=== PATIENT | female | born 1975 | race Caucasian/White ===

== ENCOUNTER 2016-11-05 21:58 | Emergency (ER) | payer BC ==
[2016-11-05] MEDS ORDERED: KETOROLAC 60 MG/2 ML VIAL IM STA (22:25)
[2016-11-05] MEDS ORDERED: predniSONE 20 MG TAB PO STA (22:25)
[2016-11-05] MEDS ORDERED: ORPHENADRINE 30 MG/ML 2 ML VIAL IM STA (22:25)
--- NOTE | 2016-11-05 23:09 | CT ---
EXAM: CT Cervical Spine Without Intravenous Contrast. CLINICAL HISTORY: Pain. TECHNIQUE: Axial computed tomography images of the cervical spine without intravenous contrast. Coronal and sagittal reformations provided. DOSE INFORMATION: CTDI is 16.50 mGy and DLP is 378.40 mGy-cm. This CT exam was performed using one or more of the following dose reduction techniques: automated exposure control, adjustment of the mA and/or kV according to patient size, and/or use of iterative reconstruction technique. COMPARISON: No relevant prior studies available. FINDINGS: Vertebrae: No acute fracture of the cervical spine. There is reversal of cervical lordosis. Facet joints are normally aligned. Discs/spinal canal/neural foramina: Mild disc space narrowing and eccentric disc-osteophyte complex is present at C5-6 with associated narrowing of the spinal canal and left lateral recess as well as the left neural foramen at this level. Soft tissues: Prevertebral soft tissues are normal in thickness. No evidence of significant soft tissue abnormality. Lung apices: No acute abnormality in the visualized lung apices. IMPRESSION: 1. No acute fracture or traumatic subluxation of the cervical spine. 2. Reversal of cervical lordosis, possibly related to positioning, degenerative change and/or muscle spasm. 3. Mild disc space narrowing and eccentric disc-osteophyte complex at C5- 6 resulting in narrowing of the spinal canal and left lateral recess as well as the left neural foramen at this level.
[2016-11-05 23:33] VITALS: BP 148/97; PULSE 75; RESP 18; TEMP 98.2
--- NOTE | 2016-11-05 23:42 | ED ---
Upper Extremity HPI - General Chief Complaint: Extremity Injury, Upper Stated Complaint: numbness/pain-shoulder & arm Time Seen by Provider: 11/05/16 22:12 Source: patient, family Mode of arrival: ambulatory Limitations: no limitations - History of Present Illness Initial Comments: This patient is a 41-year-old woman who presents to be evaluated for right upper extremity pain that is been going on for about 4 months. She indicates pain to the right forearm including into the right hand mainly the first and second digits. The pain she feels comes down from the neck through the upper arm into the forearm. Patient denies any acute trauma. She states that she has been seen by her physician and had completed to courses of steroids, without much change in the pain. Over the past few days she has had worsening. Patient denies weakness. The pain is constant, aching and burning. She does not identify any worsening or relieving factors. She has been trying gabapentin for the past couple weeks without much change as well. MD Complaint: Injury to:: right, arm Onset/Timin -: month(s) Other Injuries: none Handedness: right Improves With: none Worsens With: none Associated Symptoms: denies other symptoms - Related Data Home Medications Medication Instructions Recorded Confirmed Ergocalciferol [Vitamin D2] 50,000 unit PO WE 11/05/16 11/05/16 Gabapentin [Neurontin] 300 mg PO DIRECTED 11/05/16 11/05/16 traMADol HCL [Ultram] 50 - 100 mg PO Q8H PRN 11/05/16 11/05/16 Previous Rx's Medication Instructions Recorded Hydrocodone/Acetaminophen [[place] 1 each PO Q6HR PRN #20 tab 11/05/16 5-325] predniSONE 60 mg PO DAILY #30 tab 11/05/16 Allergies Allergy/AdvReac Type Severity Reaction Status Date / Time No Known Allergies Allergy Verified 11/05/16 22:35 Review of Systems ROS Statement: Those systems with pertinent positive or pertinent negative responses have been documented in the HPI. ROS Other: All systems not noted in ROS Statement are negative. Constitutional: Denies: fever, chills, weakness Respiratory: Denies: cough, dyspnea Cardiovascular: Denies: chest pain Gastrointestinal: Denies: abdominal pain Musculoskeletal: Reports: as per HPI. Denies: back pain Skin: Denies: rash Neurological: Reports: paresthesias. Denies: headache, weakness, numbness Past Medical History Additional Past Medical History / Comment(s): right arm numbness and pain x 4months History of Any Multi-Drug Resistant Organisms: None Reported Past Surgical History: No Surgical Hx Reported Past Psychological History: No Psychological Hx Reported Smoking Status: Former smoker Past Alcohol Use History: None Reported Past Drug Use History: None Reported General Exam Limitations: no limitations General appearance: alert, in no apparent distress Head exam: Present: atraumatic, normocephalic, normal inspection Eye exam: Present: normal appearance. Absent: scleral icterus, conjunctival injection Neck exam: Present: normal inspection, full ROM Respiratory exam: Present: normal lung sounds bilaterally. Absent: respiratory distress, wheezes, rales, rhonchi, stridor Cardiovascular Exam: Present: regular rate, normal rhythm, normal heart sounds Extremities exam: Present: normal inspection, full ROM, normal capillary refill. Absent: tenderness Back exam: Present: normal inspection. Absent: CVA tenderness (R), CVA tenderness (L), vertebral tenderness Neurological exam: Present: alert. Absent: motor sensory deficit Skin exam: Present: warm, dry, intact, normal color. Absent: rash Course Vital Signs 11/05/16 11/05/16 22:05 23:29 Temperature 98.7 F 98.2 F Pulse Rate 105 H 75 Respiratory 20 18 Rate Blood Pressure 134/89 148/97 O2 Sat by Pulse 98 98 Oximetry Disposition Clinical Impression: Right arm pain Disposition: HOME SELF-CARE Condition: Good Instructions: Cervical Radiculopathy (ED) Prescriptions: Hydrocodone/Acetaminophen [[place] 5-325] 1 each PO Q6HR PRN #20 tab PRN Reason: Pain predniSONE 60 mg PO DAILY #30 tab Referrals: Renuka Harris DO [Primary Care Provider] - 1-2 days
== END 2016-11-06 00:19 | disposition home or self-care (01) ==
LOC: EC 21:58
DX: M79.621 Pain in right upper arm (principal); M79.631 Pain in right forearm; M79.641 Pain in right hand; M79.644 Pain in right finger(s); M54.2 Cervicalgia; Z87.891 Personal history of nicotine dependence; Z79.899 Other long term (current) drug therapy; X58.XXXA Exposure to other specified factors, initial encounter
CPT/HCPCS: 72125; 99283; 96372 ×2; J2360; J1885; J7512

== ENCOUNTER → 2017-05-06 | Outpatient (CLI) | payer BC ==
--- NOTE | 2017-05-06 17:52 | XR ---
EXAMINATION TYPE: XR cervical spine w flex/ext DATE OF EXAM: 05/06/2017 COMPARISON: NONE HISTORY: Pain TECHNIQUE: 7 views FINDINGS: Cervical vertebra have normal alignment. There is slight narrowing at C5-6 disc space with anterior mild spurring. Flexion-extension views show no sign of instability. Posterior elements are i ntact. Atlantoaxial facet joint is normal. IMPRESSION: No sign of instability. Mild spondylosis at C5-6.
== END | disposition home or self-care (01) ==
LOC: RADXRMAIN 17:21
PROVIDERS: ATTEND Neurological Surgery
DX: M47.812 Spondylosis without myelopathy or radiculopathy, cervical region (principal)
CPT/HCPCS: 72052

== ENCOUNTER → 2017-05-09 | Outpatient (CLI) | payer BC ==
--- NOTE | 2017-05-09 07:56 | MR ---
EXAMINATION TYPE: MR cervical spine wo con DATE OF EXAM ORDERED: 05/09/2017 7:39 AM HISTORY: M50.022,M50.023 Cervical disc disorder with myelopathy. TECHNOLOGIST HISTORY AT TIME OF EXAM: Cervical disc disorder with myelopathy, left arm and shoulder p ain COMPARISON: None. TECHNIQUE: Multiplanar, multiecho imaging of the cervical spine was obtained without contrast on a 1 .5 juvencio magnet. FINDINGS: Prevertebral soft tissues are normal. There is mild reversal of the normal cervical lordosis. Vertebral body alignment is maintained. Atlan toaxial relationships are normal. There is a normal craniocervical junction. Cord signal is normal. At C2-C3, no definite abnormality is seen. At C3-C4, there is mild, bilateral intervertebral foraminal narrowing. There is no significant compre ssive discopathy. Facet and uncovertebral joints are unremarkable. At C4-C5, there is mild, bilateral intervertebral foraminal narrowing. There is a diffuse disc displa cement. The facet and uncovertebral joints are unremarkable. At C5-C6, there is disc space loss. There is a left paracentral disc protrusion deforming the thecal sac with cord contact and displacement. This is also causing left-sided intervertebral foraminal narr owing. The facet and uncovertebral joints are unremarkable. At C6-C7, there is disc space loss. There is a large central and right paracentral disc protrusion. T his is deforming the thecal sac with cord contact and compression. The intervertebral foramina are re asonably well-maintained. Facet and uncovertebral joints are unremarkable. At C7-T1, no definite abnormality is seen. IMPRESSION: 1. LEFT PARACENTRAL DISC PROTRUSION, C5-6. 2. RIGHT PARACENTRAL DISC PROTRUSION, C6-7. 3. MULTILEVEL INTERVERTEBRAL FORAMINAL NARROWING.
== END | disposition home or self-care (01) ==
LOC: RADMRIMAIN 07:03
PROVIDERS: ATTEND Neurological Surgery
DX: M99.71 Connective tissue and disc stenosis of intervertebral foramina of cervical region (principal); M50.122 Cervical disc disorder at C5-C6 level with radiculopathy
CPT/HCPCS: 72141

== ENCOUNTER → 2018-07-29 | Outpatient (CLI) | payer BC ==
--- NOTE | 2018-07-29 15:49 | XR ---
EXAMINATION TYPE: XR cervical spine w flex/ext DATE OF EXAM: 07/29/2018 TECHNIQUE: Frontal, lateral, oblique, swimmers, and open mouth view of the cervical spine are obtaine d. Flexion and tension views are obtained. HISTORY: M48.02 Spinal stenosis M50.123 Cervical disc disor COMPARISON: 05/06/2017 FINDINGS: Interval postoperative changes of anterior cervical discectomy and fusion. Intervertebral b adonay stabilizer is noted at the C5-6 and C6-7 levels. Spinal alignment is stable at neutral, flexion a nd extension. The main levels are within normal limits. IMPRESSION: Appropriate postoperative alignment.
== END | disposition home or self-care (01) ==
LOC: RADXRMAIN 15:08
PROVIDERS: ATTEND Neurological Surgery
DX: M48.02 Spinal stenosis, cervical region (principal); M50.123 Cervical disc disorder at C6-C7 level with radiculopathy; M50.022 Cervical disc disorder at C5-C6 level with myelopathy
CPT/HCPCS: 72052

== ENCOUNTER → 2018-08-05 | Outpatient (CLI) | payer BC ==
--- NOTE | 2018-08-07 12:52 | MM ---
Reason for exam: screening (asymptomatic). Baseline mammogram. History: Family history of breast cancer in mother at age 67. Bilateral breast lifts in 2014. Physical Findings: Nurse did not find any significant physical abnormalities on exam. MG 3D Screening Mammo W/Cad Bilateral CC and MLO view(s) were taken. No prior studies available for comparison. There are scattered fibroglandular densities. There is a 13 mm oval circumscribed density in the right upper outer middle breast. There is benign-appearing round bilateral breast calcifications. ASSESSMENT: Incomplete: need additional imaging evaluation, BI-RAD 0 RECOMMENDATION: Ultrasound of the right breast.
--- NOTE | 2018-08-07 12:58 | USB ---
History: Family history of breast cancer in mother at age 67. US Breast Workup Limited RT Right limited breast ultrasound including focal area of concern, retroareolar and axilla demonstrates a 0.9 x 0.5 x 0.9 cm oval well circumscribed hypoechoic lesion at the 10 o'clock position. These results were verbally communicated with the patient and result sheet given to the patient on 08/05/18. ASSESSMENT: Suspicious, BI-RAD 4 RECOMMENDATION: Ultrasound core biopsy of the right breast. Called Dr. Harris with mammographic findings and has scheduled an appointment for the patient for 09/01/[address] Foster. The right breast ultrasound core biopsy is schedualed for 08/02/18 at 2pm. PRELIMINARY REPORT CALLED AND FAXED TO DR. FOSTER ON 08/05/18
== END | disposition home or self-care (01) ==
LOC: RADMAMWWP 14:27
PROVIDERS: ATTEND Family Medicine
DX: Z12.31 Encounter for screening mammogram for malignant neoplasm of breast (principal); Z80.3 Family history of malignant neoplasm of breast
CPT/HCPCS: 77063; 77067

== ENCOUNTER → 2018-08-13 | Day surgery (SDC) | payer BC ==
[2018-08-13 07:17] VITALS: RESP 16; BMI 37.3
[2018-08-13 08:58] VITALS: BP 142/75; PULSE 71; TEMP 97.9
--- NOTE | 2018-08-13 16:29 | USB ---
EXAMINATION TYPE: US biopsy breast VAD RT DATE OF EXAM: 08/13/2018 CLINICAL HISTORY: R92.8 Abnormal Mammogram. TECHNIQUE: Ultrasound guided core biopsy of right breast. COMPARISON: 08/05/2018 FINDINGS: The procedure of ultrasound guided core biopsy was explained to the patient. Benefits, alt ernatives, and risks were discussed. An informed consent was then obtained. A timeout was performed. The patient was placed in supine positioning for imaging and for the procedure. The overlying skin w as cleansed with Betadine, prepped and draped in usual sterile fashion. Lidocaine buffered with bica rbonate was used as anesthetic into the skin and subcutaneous tissue up to area of concern in the rig ht breast. A small skin jade was made with surgical scalpel. Under ultrasound guidance, a 12-gauge vacuum assisted biopsy gun device was used to obtain 7 core brendan ples. Following this, a biopsy clip was left in lesion. Postprocedure mammogram ordered by the physician is performed. Coil clip Core marker is within the ri ght breast. The patient tolerated the procedure well without any immediate complication. The patient was kept in the radiology department for short stay after the procedure and then discharged home in stable condi tion. Patient will follow-up with her physician for the results. IMPRESSION: 1. Successful ultrasound-guided vacuum-assisted core biopsy right breast. Recommendations: 1. Recommendations are pending pathology results.
== END | disposition home or self-care (01) ==
LOC: RADUSWWP 06:56
PROVIDERS: ATTEND Surgery
DX: D24.1 Benign neoplasm of right breast (principal)
CPT/HCPCS: 88305; 77065; 19083; A4648; J2001

== ENCOUNTER → 2019-02-15 | Outpatient (CLI) | payer BC ==
--- NOTE | 2019-02-15 11:31 | USB ---
Reason for exam: follow-up at short interval from prior study. History: Family history of breast cancer in mother at age 67. Benign US biopsy breast VAD RT of the right breast, August 13, 2018. Breast lifts of both breasts, 2007. Physical Findings: Nurse did not find any significant physical abnormalities on exam. US Breast RT Right complete breast ultrasound includes all four quadrants, the retroareolar region and axilla. Finding demonstrates a 1.2 x 0.8 x 0.4cm elongated, hypoechoic lesion at 10 o'clock, biopsy proven fibroadenoma. No other solid or cystic lesions. These results were verbally communicated with the patient and result sheet given to the patient on 02/15/19. ASSESSMENT: Benign, BI-RAD 2 RECOMMENDATION: Return to routine screening mammogram schedule for both breasts. (or after delivery)
== END | disposition home or self-care (01) ==
LOC: RADUSWWP 09:30
PROVIDERS: ATTEND Surgery
DX: R92.8 Other abnormal and inconclusive findings on diagnostic imaging of breast (principal)

== ENCOUNTER → 2020-06-14 | Outpatient (CLI) | payer BC ==
--- NOTE | 2020-06-15 09:49 | MM ---
Reason for exam: screening (asymptomatic). Last mammogram was performed 1 year and 10 months ago. History: Family history of breast cancer in mother at age 67. Benign US biopsy breast VAD RT of the right breast, August 13, 2018. Breast lifts of both breasts, 2007. Physical Findings: A clinical breast exam by your physician is recommended on an annual basis and results should be correlated with mammographic findings. MG 3D Screening Mammo W/Cad Bilateral CC and MLO view(s) were taken. Prior study comparison: August 13, 2018, right breast MG diagnostic mammo RT wo CAD. August 05, 2018, bilateral MG 3d screening mammo w/cad. There are scattered fibroglandular densities. Previous mammotome biopsy in the right breast. No significant changes when compared with prior studies. ASSESSMENT: Benign, BI-RAD 2 RECOMMENDATION: Routine screening mammogram of both breasts in 1 year.
== END | disposition home or self-care (01) ==
LOC: RADMAMWWP 14:38
PROVIDERS: ATTEND Family Medicine
DX: Z12.31 Encounter for screening mammogram for malignant neoplasm of breast (principal)
CPT/HCPCS: 77063; 77067

== ENCOUNTER 2021-04-02 18:52 | Emergency (ER) | payer BC ==
[2021-04-02 19:13] VITALS: RESP 18; TEMP 98.4
[2021-04-02] MEDS ORDERED: HYDROmorphone 1 MG/ML 1 ML SYRINGE IM STA (19:34)
--- NOTE | 2021-04-02 19:37 | ED ---
Back Pain HPI - General Chief Complaint: Back Pain/Injury Stated Complaint: low back pain Time Seen by Provider: 04/02/21 19:25 Source: patient, family, RN notes reviewed Limitations: no limitations - History of Present Illness Initial Comments: This a 45-year-old female presents emergency Department chief complaint of low back pain. Patient had increased symptoms of last 2 weeks. Patient states she has primary lumbar pain on the right side with numbness to her first 3 digits on the right and burning sensation to her left eye. She denies any bowel, bladder incontinence or retention of saddle anesthesias. Patient has no current abdominal pain. Patient saw PCP today sent emergency from for x-rays. Patient states she's had cervical spine surgery secondary to disc issues. - Related Data Home Medications Medication Instructions Recorded Confirmed Ergocalciferol [Vitamin D2] 50,000 unit PO WE 11/05/16 08/13/18 Previous Rx's Medication Instructions Recorded Ibuprofen [Motrin] 600 mg PO Q8HR PRN #20 tab 04/02/21 Allergies Allergy/AdvReac Type Severity Reaction Status Date / Time No Known Allergies Allergy Verified 08/13/18 07:09 Review of Systems ROS Statement: Those systems with pertinent positive or pertinent negative responses have been documented in the HPI. ROS Other: All systems not noted in ROS Statement are negative. Past Medical History Past Medical History: No Reported History Additional Past Medical History / Comment(s): right arm numbness and pain x 4months History of Any Multi-Drug Resistant Organisms: None Reported Past Surgical History: No Surgical Hx Reported Additional Past Surgical History / Comment(s): herniated disc 2017, neck surgery Past Anesthesia/Blood Transfusion Reactions: No Reported Reaction Past Psychological History: No Psychological Hx Reported Past Alcohol Use History: None Reported Past Drug Use History: None Reported General Exam Limitations: no limitations General appearance: alert, in no apparent distress Head exam: Present: atraumatic, normocephalic, normal inspection Neck exam: Present: normal inspection, full ROM. Absent: tenderness, meningismus, lymphadenopathy Respiratory exam: Present: normal lung sounds bilaterally. Absent: respiratory distress, wheezes, rales, rhonchi, stridor Cardiovascular Exam: Present: regular rate, normal rhythm, normal heart sounds. Absent: systolic murmur, diastolic murmur, rubs, gallop, clicks GI/Abdominal exam: Present: soft, normal bowel sounds. Absent: distended, tenderness, guarding, rebound, rigid Extremities exam: Present: other (Lower extremity strength equal bilaterally neurovascular intact pain with range of motion lower extremities equal color equal warmth) Back exam: Present: normal inspection, tenderness, paraspinal tenderness. Absent: full ROM (Pain with range of motion), vertebral tenderness Neurological exam: Present: alert, oriented X3, reflexes normal. Absent: motor sensory deficit Course Vital Signs 04/02/21 19:08 Temperature 98.4 F Pulse Rate 75 Respiratory 18 Rate Blood Pressure 145/84 O2 Sat by Pulse 99 Oximetry Medical Decision Making - Medical Decision Making 45-year-old presented for low back pain. Patient has disc bulging, degenerative disc changes. Patient has no red flag symptoms will be discharged in stable condition she does have a surgeon to follow-up with an her PCP. Disposition Clinical Impression: Bulging lumbar disc, Lumbar radiculopathy Disposition: HOME SELF-CARE Condition: Stable Instructions (If sedation given, give patient instructions): Acute Low Back Pain (ED) Additional Instructions: Please return to the Emergency Department if symptoms worsen or any other concerns. Prescriptions: Ibuprofen [Motrin] 600 mg PO Q8HR PRN #20 tab PRN Reason: Pain Is patient prescribed a controlled substance at d/c from ED?: No Referrals: Renuka Harris DO [Primary Care Provider] - 1-2 days Time of Disposition: 20:56
--- NOTE | 2021-04-02 20:47 | CT ---
EXAMINATION TYPE: CT lumbar spine wo con DATE OF EXAM: 04/02/2021 7:56 PM COMPARISON: None available. HISTORY: low back pain, no injury TECHNIQUE: Axial CT images of the lumbar spine was obtained without contrast. CT DLP: 1843.6 mGycm Automated exposure control for dose reduction was used. FINDINGS: There is no acute fracture or subluxation. The vertebral body heights are maintained. There is mild t o moderate disc narrowing at L5-S1. There is disc bulge at L4-L5. Suboptimal evaluation of central ca nal stenosis. There is suggestion of mild foramina stenosis in the lower lumbar spine.. IMPRESSION: L4-L5 disc bulge. Otherwise mild spondylosis without acute osseous abnormality.
[2021-04-02] MEDS ORDERED: ACET/COD 300 MG/30 MG STARTER PACK 6 TAB BTL PO STA (20:55)
[2021-04-02 21:07] VITALS: BP 130/85; PULSE 72
== END 2021-04-02 21:12 | disposition home or self-care (01) ==
LOC: EC 18:52
DX: M51.16 Intervertebral disc disorders with radiculopathy, lumbar region (principal)
CPT/HCPCS: 72131; 99284; 96372; J1170

== ENCOUNTER → 2021-06-24 | Outpatient (CLI) | payer BC ==
--- NOTE | 2021-06-27 11:33 | MM ---
Reason for exam: screening (asymptomatic). Last mammogram was performed 1 year ago. History: Family history of breast cancer in mother at age 67. Benign US biopsy breast VAD RT of the right breast, August 13, 2018. Breast lifts of both breasts, 2008. Took other hormone for 3 months. Physical Findings: A clinical breast exam by your physician is recommended on an annual basis and results should be correlated with mammographic findings. MG 3D Screening Mammo W/Cad Bilateral CC and MLO view(s) were taken. Prior study comparison: June 14, 2020, bilateral MG 3d screening mammo w/cad. August 13, 2018, right breast MG diagnostic mammo RT wo CAD. There are scattered fibroglandular densities. Previous mammotome biopsy in the right breast. Focal asymmetry in the right breast. No significant changes when compared with prior studies. ASSESSMENT: Benign, BI-RAD 2 RECOMMENDATION: Routine screening mammogram of both breasts in 1 year.
== END | disposition home or self-care (01) ==
LOC: RADMAMWWP 12:48
PROVIDERS: ATTEND Family Medicine
DX: Z12.31 Encounter for screening mammogram for malignant neoplasm of breast (principal); Z80.3 Family history of malignant neoplasm of breast
CPT/HCPCS: 77063; 77067

== ENCOUNTER → 2022-08-06 | Outpatient (CLI) | payer BC ==
--- NOTE | 2022-08-07 19:42 | MM ---
Reason for Exam: Screening (asymptomatic). Last mammogram was performed 1 year(s) and 2 month(s) ago. Patient History: Menarche at age 15. Patient has no children. 08/13/2018, Benign Core Biopsy on the right side. Mother had breast cancer, age 65. Last menstrual period: 08/03/2022 Prior Study Comparison: 08/13/2018 Right Diagnostic Mammogram, [facility]. 06/14/2020 Bilateral Screening Mammogram, [facility]. 06/24/2021 Bilateral Screening Mammogram, [facility]. Tissue Density: There are scattered fibroglandular densities. Findings: Analyzed By CAD. Microclip right breast from prior biopsy. Associated oval focal asymmetry remains unchanged. Additional stable 12:00 focal asymmetry left breast. No significant change from prior exams. Overall Assessment: Benign, BI-RAD 2 Management: Screening Mammogram of both breasts in 1 year. 1. Per NCCN guidelines, a 5 year risk greater than 1.67% is used to assess eligibility for risk reduction therapy. Consider specialist referral for further assessment. 2. In addition, note the patient's increased (20%) lifetime risk for the development of breast cancer. The patient may qualify for alternating screening with mammogram and breast MRI. 3. Patient should continue monthly self breast exams. Negative results should not preclude additional follow-up of suspicious palpable abnormalities. Electronically signed and approved by: Marcela Mahan M.D. Radiologist
== END | disposition home or self-care (01) ==
LOC: RADMAMWWP 13:03
PROVIDERS: ATTEND Family Medicine
DX: Z12.31 Encounter for screening mammogram for malignant neoplasm of breast (principal); Z80.3 Family history of malignant neoplasm of breast; Z98.890 Other specified postprocedural states
CPT/HCPCS: 77063; 77067

== ENCOUNTER 2023-06-08 17:24 | Emergency (ER) | payer BC ==
[2023-06-08 18:00] VITALS: TEMP 98
[2023-06-08] MEDS ORDERED: LIDOCAINE 5% PATCH TOPICAL STA (18:30)
[2023-06-08] MEDS ORDERED: ACETAMINOPHEN TAB 500 MG TAB PO STA (18:30)
[2023-06-08] MEDS ORDERED: KETOROLAC 15 MG/ML 1 ML VIAL IM STA (18:30)
--- NOTE | 2023-06-08 19:01 | XR ---
EXAMINATION TYPE: XR knee complete LT DATE OF EXAM: 06/08/2023 6:42 PM CLINICAL INDICATION:Female, 47 years old with history of pain; COMPARISON: None. TECHNIQUE: XR knee complete LT; examined in Frontal, lateral and oblique projections. FINDINGS: No evidence of any acute osseous pathology, soft tissue swelling, or joint effusion is no mandi. Tricompartmental osteophyte formation involving the femoral condyles, tibial plateau and patella. Mi ld joint space narrowing. A fabella is present. IMPRESSION: 1. No acute osseous pathology. 2. Mild tricompartmental osteoarthritic changes.
--- NOTE | 2023-06-08 19:37 | US ---
EXAMINATION TYPE: US venous doppler duplex LE LT DATE OF EXAM: 06/08/2023 7:11 PM COMPARISON: NONE CLINICAL INDICATION: Female, 47 years old with history of pain; pain in left leg x a couple weeks. Pt states pain got worse 3 days ago. No hx of DVT. Not on blood thinners SIDE PERFORMED: Left TECHNIQUE: The lower extremity deep venous system is examined utilizing real time linear array sonog gurmeet with graded compression, doppler sonography and color-flow sonography. VESSELS IMAGED: Common Femoral Vein Deep Femoral Vein Greater Saphenous Vein * Femoral Vein Popliteal Vein Small Saphenous Vein * Proximal Calf Veins (* superficial vessels) Left Leg: No evidence for DVT IMPRESSION: Grayscale, color doppler, spectral doppler imaging performed of the deep veins of the lo wer extremities. There is normal flow, compressibility, vascular waveforms.
[2023-06-08] MEDS ORDERED: IBUPROFEN 600 MG STARTER PACK 4 TAB BTL PO STA (20:13)
[2023-06-08] MEDS ORDERED: ACET/COD 300 MG/30 MG STARTER PACK 6 TAB BTL PO STA (20:13)
[2023-06-08] MEDS ORDERED: HYDROcodone/APAP 5-325MG 1 EACH TAB PO STA (20:13)
--- NOTE | 2023-06-08 20:18 | ED ---
General Adult HPI - General Chief complaint: Extremity Injury, Lower Stated complaint: left knee pain Time Seen by Provider: 06/08/23 17:51 Source: patient, RN notes reviewed Mode of arrival: wheelchair Limitations: no limitations - History of Present Illness Initial comments: 47 with a presents to the emergency department chief complaint of left knee p ain. She states that this going on for around 2 weeks but has been worse for the past 3 days. She denies any injury. She denies any swelling to the lower leg. Denies calf pain, chest pain, shortness of breath. She states that the pain is worse with certain movements. She states that today she was walking up the stairs when she felt a worsening pain. She denies any numbness, tingling. She reports that she has been icing the knee which has not been helping - Related Data Home Medications Medication Instructions Recorded Confirmed Ergocalciferol [Vitamin D2] 50,000 unit PO WE 11/05/16 08/13/18 Previous Rx's Medication Instructions Recorded Ibuprofen [Motrin] 600 mg PO Q8HR PRN #20 tab 04/02/21 Allergies Allergy/AdvReac Type Severity Reaction Status Date / Time No Known Allergies Allergy Verified 06/08/23 17:45 Review of Systems ROS Statement: Those systems with pertinent positive or pertinent negative responses have been documented in the HPI. ROS Other: All systems not noted in ROS Statement are negative. Past Medical History Past Medical History: No Reported History Additional Past Medical History / Comment(s): right arm numbness and pain x 4months History of Any Multi-Drug Resistant Organisms: None Reported Past Surgical History: No Surgical Hx Reported Additional Past Surgical History / Comment(s): herniated disc 2017, neck surgery Past Anesthesia/Blood Transfusion Reactions: No Reported Reaction Past Psychological History: No Psychological Hx Reported Smoking Status: Never smoker Past Alcohol Use History: None Reported Past Drug Use History: None Reported General Exam Limitations: no limitations General appearance: alert, in no apparent distress Course Vital Signs 06/08/23 06/08/23 17:43 20:45 Temperature 98 F Pulse Rate 79 76 Respiratory 16 20 Rate Blood Pressure 130/92 128/90 O2 Sat by Pulse 97 100 Oximetry Medical Decision Making - Medical Decision Making Was pt. sent in by a medical professional or institution (, PA, ARCHITECTURAL TECHNOLOGIST, urgent care, hospital, or [facility]...) When possible be specific @ -No Did you speak to anyone other than the patient for history (EMS, parent, family, police, friend...)? What history was obtained from this source @ -No Did you review nursing and triage notes (agree or disagree)? Why? @ -I reviewed and agree with nursing and triage notes Were old charts reviewed (outside hosp., previous admission, EMS record, old EKG, old radiological studies, urgent care reports/EKG's, [facility] records)? Report findings @ -No old charts were reviewed Differential Diagnosis (chest pain, altered mental status, abdominal pain women, abdominal pain men, vaginal bleeding, weakness, fever, dyspnea, syncope, headache, dizziness, GI bleed, back pain, seizure, CVA, palpatations, mental health, musculoskeletal)? @ -Differential Musculoskeletal Muscular strain, contusion, ligament sprain, fracture, arthritis, septic arthritis, bursitis, cellulitis, muscle spasm, nerve compression, DVT, arterial occlusion, herpes zoster, electrolyte abnormality, tumor.... This is not meant to be in all inclusive list EKG interpreted by me (3pts min.). @ -None X-rays interpreted by me (1pt min.). @ -X-ray left knee shows no evidence of acute fracture, mild osteoarthritic changes CT interpreted by me (1pt min.). @ -None done U/S interpreted by me (1pt. min.). @ -Ultrasound Left Leg Shows No Evidence of DVT What testing was considered but not performed or refused? (CT, X-rays, U/S, labs)? Why? @ -None What meds were considered but not given or refused? Why? @ -None Did you discuss the management of the patient with other professionals (professionals i.e. , PA, ARCHITECTURAL TECHNOLOGIST, lab, RT, psych nurse, social security specialist, orthopaedic physician assistant, teacher, motorcycle police officer, case checker)? Give summary @ -No Was smoking cessation discussed for >3mins.? @ -No Was critical care preformed (if so, how long)? @ -No Were there social determinants of health that impacted care today? How? (Homelessness, low income, unemployed, alcoholism, drug addiction, transportation, low edu. Level, literacy, decrease access to med. care, intermediate, rehab)? @ -No Was there de-escalation of care discussed even if they declined (Discuss DNR or withdrawal of care, Hospice)? DNR status @ -No What co-morbidities impacted this encounter? (DM, HTN, Smoking, COPD, CAD, Cancer, CVA, ARF, Chemo, Hep., AIDS, mental health diagnosis, sleep apnea, morbid obesity)? @ -None Was patient admitted / discharged? Hospital course, mention meds given and route, prescriptions, significant lab abnormalities, going to OR and other pertinent info. @ -Discharged. Patient presented to emergency department chief complaint of left knee pain. She denies any trauma. Ultrasound left leg shows no evidence of DVT, x-rays the left a shows no evidence of acute fracture, mild ostearthritic changes. Patient given Toradol, lidocaine patch for pain control which slightly improved her pain. Patient discharged home with Tylenol 3 starter pack. Patient advised to follow-up with her PCP. Patient stable at time of discharge. Case discussed with Dr. Mata. Undiagnosed new problem with uncertain prognosis? @ -No Drug Therapy requiring intensive monitoring for toxicity (Heparin, Nitro, Insulin, Cardizem)? @ -No Were any procedures done? @ -No Diagnosis/symptom? @ -Left knee pain Acute, or Chronic, or Acute on Chronic? @ -Acute Uncomplicated (without systemic symptoms) or Complicated (systemic symptoms)? @ -Uncomplicated Side effects of treatment? @ -No Exacerbation, Progression, or Severe Exacerbation? @ -No Poses a threat to life or bodily function? How? (Chest pain, [place], [place], pneumonia, PE, COPD, DKA, ARF, appy, cholecystitis, CVA, Diverticulitis, Homicidal, Suicidal, threat to staff... and all critical care pts) @ -No Disposition Clinical Impression: Left knee pain Disposition: HOME SELF-CARE Condition: Stable Instructions (If sedation given, give patient instructions): Knee Pain (ED) Additional Instructions: Please follow up with your primary care provider. Rest, ice, elevated the knee. Return to the emergency department for new or worsening symptoms. Is patient prescribed a controlled substance at d/c from ED?: No Referrals: Renuka Harris DO [Primary Care Provider] - 1-2 days Sunny Fowler MD [Medical Doctor] - 1-2 days
[2023-06-08 21:05] VITALS: BP 128/90; PULSE 76; RESP 20
== END 2023-06-08 20:47 | disposition home or self-care (01) ==
LOC: EC 17:24
DX: M25.562 Pain in left knee (principal)
CPT/HCPCS: 73562; 93971; 99284; 96372; J1885

== ENCOUNTER 2024-10-28 20:04 | Emergency (ER) | payer BC ==
[2024-10-28 20:43] VITALS: BP 142/85; PULSE 78; RESP 18; TEMP 98.5
--- NOTE | 2024-10-28 21:16 | ED ---
ENT HPI - General Chief complaint: ENT Stated complaint: Ear pain Time Seen by Provider: 10/28/24 21:11 Source: patient Mode of arrival: ambulatory Limitations: no limitations - History of Present Illness Initial comments: 49-year-old female presenting chief complaint of right ear pain. Pain has been ongoing since Thursday. Patient reports that she has had several episodes of ear pain ongoing over the last year. This seems to be a recurrent issue for her. States that her hearing is muffled and she feels like something needs to pop inside of her ear. There is no discharge or bleeding. No swelling or pain behind her ear. No fever. She is having some congestion. - Related Data Home Medications Medication Instructions Recorded Confirmed Ergocalciferol [Vitamin D2] 50,000 unit PO WE 11/05/16 08/13/18 Previous Rx's Medication Instructions Recorded Ibuprofen [Motrin] 600 mg PO Q8HR PRN #20 tab 04/02/21 Amoxicillin 875 mg PO Q12HR 7 Days #14 tablet 10/28/24 Allergies Allergy/AdvReac Type Severity Reaction Status Date / Time No Known Allergies Allergy Verified 10/28/24 20:43 Review of Systems ROS Statement: Those systems with pertinent positive or pertinent negative responses have been documented in the HPI. ROS Other: All systems not noted in ROS Statement are negative. Past Medical History Past Medical History: No Reported History Additional Past Medical History / Comment(s): right arm numbness and pain x 4months History of Any Multi-Drug Resistant Organisms: None Reported Past Surgical History: No Surgical Hx Reported Additional Past Surgical History / Comment(s): herniated disc 2017, neck surgery Past Anesthesia/Blood Transfusion Reactions: No Reported Reaction Past Psychological History: No Psychological Hx Reported Smoking Status: Never smoker Past Alcohol Use History: None Reported Past Drug Use History: None Reported General Exam Limitations: no limitations General appearance: alert, in no apparent distress Head exam: Present: atraumatic, normocephalic, normal inspection Eye exam: Present: normal appearance, EOMI Expanded Ear exam: Present: normal external inspection TM/Canal exam: Erythema: Right TM Neck exam: Present: normal inspection. Absent: meningismus Respiratory exam: Absent: respiratory distress Cardiovascular Exam: Present: regular rate Neurological exam: Present: alert, oriented X3 Psychiatric exam: Present: normal affect, normal mood Skin exam: Present: warm, dry, normal color Course Vital Signs 10/28/24 20:42 Temperature 98.5 F Pulse Rate 78 Respiratory 18 Rate Blood Pressure 142/85 O2 Sat by Pulse 98 Oximetry Medical Decision Making - Medical Decision Making Was pt. sent in by a medical professional or institution (CRISSY Sharma, SCREENER OPERATOR, urgent care, hospital, or penitentiary...) When possible be specific @ -No Did you speak to anyone other than the patient for history (EMS, parent, family, police, friend...)? What history was obtained from this source @ -No Did you review nursing and triage notes (agree or disagree)? Why? @ -I reviewed and agree with nursing and triage notes Were old charts reviewed (outside hosp., previous admission, EMS record, old EKG, old radiological studies, urgent care reports/EKG's, penitentiary records)? Report findings @ -No old charts were reviewed Differential Diagnosis (chest pain, altered mental status, abdominal pain women, abdominal pain men, vaginal bleeding, weakness, fever, dyspnea, syncope, headache, dizziness, GI bleed, back pain, seizure, CVA, palpatations, mental health, musculoskeletal)? @ -Differential includes otitis media, otitis externa, mastoiditis, foreign body, not an all-inclusive list EKG interpreted by me (3pts min.). @ -As above X-rays interpreted by me (1pt min.). @ -None done CT interpreted by me (1pt min.). @ -None done U/S interpreted by me (1pt. min.). @ -None done What testing was considered but not performed or refused? (CT, X-rays, U/S, labs)? Why? @ -None What meds were considered but not given or refused? Why? @ -None Did you discuss the management of the patient with other professionals (professionals i.e. CRISSY Sharma, SCREENER OPERATOR, lab, RT, psych nurse, social service coordinator, insurance billing clerk, teacher, amphibious operations officer, showcase trimmer)? Give summary @ -No Was smoking cessation discussed for >3mins.? @ -No Was critical care preformed (if so, how long)? @ -No Were there social determinants of health that impacted care today? How? (Homelessness, low income, unemployed, alcoholism, drug addiction, transportation, low edu. Level, literacy, decrease access to med. care, fdc, rehab)? @ -No Was there de-escalation of care discussed even if they declined (Discuss DNR or withdrawal of care, Hospice)? DNR status @ -No What co-morbidities impacted this encounter? (DM, HTN, Smoking, COPD, CAD, Cancer, CVA, ARF, Chemo, Hep., AIDS, mental health diagnosis, sleep apnea, morbid obesity)? @ -None Was patient admitted / discharged? Hospital course, mention meds given and route, prescriptions, significant lab abnormalities, going to OR and other pertinent info. @ -49-year-old female presenting with chief complaint of right ear pain. Patient states she has had ongoing issues with recurrent right ear pain. On physical exam tympanic membrane is erythematous. No mastoid erythema swelling or tenderness. Patient will be treated for otitis media with amoxicillin. She is educated on today's findings and treatment plan. Provided with an ENT referral for recurrent ear pain. Follow-up with PCP. Report back to ER with any new or worsening symptoms. Discussed return parameters and answered all questions. Patient conveyed verbal understanding and agreed to the plan. I discussed this case in detail with my attending Dr. Harris Undiagnosed new problem with uncertain prognosis? @ -No Drug Therapy requiring intensive monitoring for toxicity (Heparin, Nitro, Insulin, Cardizem)? @ -No Were any procedures done? @ -No Diagnosis/symptom? @ -Otitis media Acute, or Chronic, or Acute on Chronic? @ -Acute Uncomplicated (without systemic symptoms) or Complicated (systemic symptoms)? @ -Uncomplicated Side effects of treatment? @ -No Exacerbation, Progression, or Severe Exacerbation? @ -No Poses a threat to life or bodily function? How? (Chest pain, [place], [place], pneumonia, PE, COPD, DKA, ARF, appy, cholecystitis, CVA, Diverticulitis, Homicidal, Suicidal, threat to staff... and all critical care pts) @ -Low likelihood Disposition Clinical Impression: Otitis media Disposition: HOME SELF-CARE Condition: Good Instructions (If sedation given, give patient instructions): Ear Infection (ED) Additional Instructions: Follow-up with PCP. Report back to ER with any new or worsening symptoms. Take medication as prescribed. Prescriptions: Amoxicillin 875 mg PO Q12HR 7 Days #14 tablet Is patient prescribed a controlled substance at d/c from ED?: No Referrals: Renuka Harris, [Primary Care Provider] - 1-2 days Abel Rae MD [STAFF PHYSICIAN] - 1-2 days Time of Disposition: 21:16
[2024-10-28] MEDS: AMOXICILLIN 875 MG TAB PO STA (21:45)
== END 2024-10-28 21:48 | disposition home or self-care (01) ==
LOC: EC 20:04
DX: H66.91 Otitis media, unspecified, right ear (principal)
CPT/HCPCS: 99282

== ENCOUNTER 2024-11-13 04:38 | Observation (INO) | payer BC ==
--- NOTE | 2024-11-13 05:21 | ED ---
General Adult HPI - General Source: patient, RN notes reviewed Mode of arrival: ambulatory Limitations: no limitations <Viviana Wallace - Last Filed: 11/13/24 07:54> <Ekaterina Gonzales - Last Filed: 11/16/24 10:14> - General Chief complaint: Chest Pain Stated complaint: SOB - History of Present Illness Initial comments: 49-year-old female presenting to the ER with chief complaint of heart palpitations. Patient states she has been feeling weak, dizzy and nauseous. Patient denies chest pain but states it is more like chest discomfort. Endorses some shortness of breath. Took baby aspirin but denies taking any blood thinners. Patient denies any history of thyroid disease. Patient states she drinks 1 cup of coffee per day. Denies any alcohol use. Denies any history of COPD. Denies any illicit drug use. (Viviana Wallace) - Related Data Home Medications Medication Instructions Recorded Confirmed Vitamin D3/Vitamin K2 Drops 1 dose PO DAILY 11/13/24 11/13/24 Allergies Allergy/AdvReac Type Severity Reaction Status Date / Time No Known Allergies Allergy Verified 11/13/24 09:19 Review of Systems ROS Other: All systems not noted in ROS Statement are negative. Constitutional: Denies: fever, chills Respiratory: Reports: dyspnea. Denies: cough Cardiovascular: Reports: palpitations. Denies: chest pain, syncope Genitourinary: Denies: urgency, dysuria Musculoskeletal: Denies: back pain Skin: Denies: rash, lesions Neurological: Reports: weakness. Denies: headache <Viviana Wallace - Last Filed: 11/13/24 07:54> ROS Other: All systems not noted in ROS Statement are negative. <EstebanEkaterina - Last Filed: 11/16/24 10:14> ROS Statement: Those systems with pertinent positive or pertinent negative responses have been documented in the HPI. Past Medical History Past Medical History: No Reported History Additional Past Medical History / Comment(s): right arm numbness and pain x 4months History of Any Multi-Drug Resistant Organisms: None Reported Past Surgical History: No Surgical Hx Reported Additional Past Surgical History / Comment(s): herniated disc 2017, neck surgery Past Anesthesia/Blood Transfusion Reactions: No Reported Reaction Past Psychological History: No Psychological Hx Reported Smoking Status: Never smoker Past Alcohol Use History: None Reported Past Drug Use History: None Reported <Viviana Wallace - Last Filed: 11/13/24 07:54> General Exam Limitations: no limitations General appearance: alert, in no apparent distress Respiratory exam: Present: normal lung sounds bilaterally. Absent: respiratory distress, wheezes, rales Cardiovascular Exam: Present: tachycardia, irregular rhythm GI/Abdominal exam: Present: soft. Absent: distended, tenderness Neurological exam: Present: alert, oriented X3 Psychiatric exam: Present: normal affect, normal mood Skin exam: Present: warm, dry, intact <Viviana Wallace - Last Filed: 11/13/24 07:54> Course Vital Signs 11/13/24 11/13/24 11/13/24 04:48 05:59 06:53 Temperature 98.0 F Pulse Rate 83 107 H 105 H Respiratory 18 17 18 Rate Blood Pressure 141/97 127/105 124/90 O2 Sat by Pulse 99 99 100 Oximetry 11/13/24 11/13/24 07:27 07:57 Temperature 97.8 F 97.9 F Pulse Rate 80 83 Respiratory 18 16 Rate Blood Pressure 151/96 138/99 O2 Sat by Pulse 98 99 Oximetry Medical Decision Making - Lab Data Result diagrams: 11/13/24 05:10 11/13/24 05:10 <Viviana Wallace - Last Filed: 11/13/24 07:54> - Lab Data Result diagrams: 11/13/24 05:10 11/13/24 05:10 <Ekaterina Gonzales - Last Filed: 11/16/24 10:14> - Medical Decision Making Was pt. sent in by a medical professional or institution (, PA, DIGITAL PRODUCTION OPERATOR, urgent care, hospital, or longterm...) When possible be specific @ -No Did you speak to anyone other than the patient for history (EMS, parent, family, police, friend...)? What history was obtained from this source @ -No Did you review nursing and triage notes (agree or disagree)? Why? @ -I reviewed and agree with nursing and triage notes Were old charts reviewed (outside hosp., previous admission, EMS record, old EKG, old radiological studies, urgent care reports/EKG's, longterm records)? Report findings @ -No old charts were reviewed Differential Diagnosis? @ -Differential Palpitations Ventricular arrhythmias, atrial arrhythmias, myocardial infarction, anemia, thyrotoxicosis, electrolyte imbalance, hypokalemia, pulmonary embolism, pulmonary disease, drugs, alcohol, anxiety, stress.... This is not meant to be an all-inclusive list. EKG interpreted by me (3pts min.). @ -A-fib with RVR rate 132 bpm, QTc of 390 ms, normal axis, no ST-T wave changes suggestive of ischemia. X-rays interpreted by me (1pt min.). @ -X-ray was unremarkable. CT interpreted by me (1pt min.). @ -None done U/S interpreted by me (1pt. min.). @ -None done What testing was considered but not performed or refused? (CT, X-rays, U/S, labs)? Why? @ -None What meds were considered but not given or refused? Why? @ -None Did you discuss the management of the patient with other professionals (professionals i.e. DrCandida, PA, DIGITAL PRODUCTION OPERATOR, lab, RT, psych nurse, social service agency director, envelope folding machine operator, t eacher, sergeant of officers, director case management)? Give summary @ -Case was discussed with ED attending physician Dr. Gonzales. Case was discussed with [facility] hospitalist Dr. Wheatley who accepted the admission. Was smoking cessation discussed for >3mins.? @ -No Was critical care preformed (if so, how long)? @ -No Were there social determinants of health that impacted care today? How? (Homelessness, low income, unemployed, alcoholism, drug addiction, transportation, low edu. Level, literacy, decrease access to med. care, half-way, rehab)? @ -No Was there de-escalation of care discussed even if they declined (Discuss DNR or withdrawal of care, Hospice)? DNR status @ -No What co-morbidities impacted this encounter? (DM, HTN, Smoking, COPD, CAD, Cancer, CVA, ARF, Chemo, Hep., AIDS, mental health diagnosis, sleep apnea, morbid obesity)? @ -None Was patient admitted / discharged? Hospital course, mention meds given and route, prescriptions, significant lab abnormalities, going to OR and other pertinent info. @ -Lab work was relatively unremarkable. Chest x-ray was unremarkable. EKG was as listed above. Patient was started on Cardizem drip and bolus. Received 1 dose of oral Cardizem as well. Received fluids bolus. Started on heparin drip. Patient will be admitted to [facility] inpatient service. Undiagnosed new problem with uncertain prognosis? @ -No Drug Therapy requiring intensive monitoring for toxicity (Heparin, Nitro, Insulin, Cardizem)? @ -No Were any procedures done? @ -No Diagnosis/symptom? @ -New onset A-fib Acute, or Chronic, or Acute on Chronic? @ -Acute Uncomplicated (without systemic symptoms) or Complicated (systemic symptoms)? @ -Default Side effects of treatment? @ -No Exacerbation, Progression, or Severe Exacerbation? @ -No Poses a threat to life or bodily function? How? (Chest pain, USA, NH, pneumonia, PE, COPD, DKA, ARF, appy, cholecystitis, CVA, Diverticulitis, Homicidal, Suicidal, threat to staff... and all critical care pts) @ -No (Viviana Wallace) I personally saw the patient and performed the critical portion of the service. I discussed the patient care with the resident physician. I directed management, care planning and final disposition of the patient. This includes, but not limited to, review of all lab work, radiological studies, EKG's, consultations, vital signs, and nursing notes. EKG interpreted by me (3pts min.) A-fib with RVR, rate 132 bpm, QT/QTc 312/390 ms, normal axis, no significant ST elevation or reciprocal depressions X-Rays interpreted by me (1 pt min.) @Personally reviewed CXR, I see no evidence of cardiomegaly, pleural effusions or consolidations CT interpreted by me ( 1pt min.) @ [none] U/S interpreted by me (1 pt min.) @ [none] Critical care time of 35 minutes excluding separately billable procedures was spent in conjunction with critical care activities provided by the Resident and Attending simultaneously. I was present during [no procedures] for all critical portions of the procedure and as immediately available to furnish service during the entire procedure. (Ekaterina Gonzales) - Lab Data Lab Results 11/13/24 11/13/24 11/13/24 Range/Units 05:10 05:10 05:10 WBC 8.48 (4.50-10.00) 10*3/uL RBC 4.97 (4.10-5.20) 10*6/uL Hgb 15.0 (12.0-15.0) g/dL Hct 45.7 (37.2-46.3) % MCV 92.0 (80.0-97.0) fL MCH 30.2 (27.0-32.0) pg MCHC 32.8 (32.0-37.0) g/dL Plt Count 293 (140-440) 10*3/uL MPV 10.5 (9.5-12.2) fL Immature Gran % (Auto) 0.2 % Neutrophils % 46.5 % Lymphocytes % 43.5 % Monocytes % 7.1 % Eosinophils % 1.8 % Basophils % 0.9 % Immature Gran # 0.02 (0.00-0.04) 10*3/uL Neutrophils # 3.94 (1.80-7.70) 10*3/uL Lymphocytes # 3.69 (0.90-5.00) 10*3/uL Monocytes # 0.60 (0.20-1.00) 10*3/uL Eosinophils # 0.15 (0.04-0.35) 10*3/uL Basophils # 0.08 (0.00-0.10) 10*3/uL PT 9.6 L (10.0-12.5) sec INR 0.8 (<1.2) APTT 23.3 (22.0-30.0) sec D-Dimer 0.32 (<0.60) mg/L FEU Sodium 138 (137-145) mmol/L Potassium 4.5 (3.5-5.1) mmol/L Chloride 104 (98-107) mmol/L Carbon Dioxide 26 (22-30) mmol/L Anion Gap 8 mmol/L BUN 13 (7-17) mg/dL Creatinine 0.77 (0.52-1.04) mg/dL Est GFR (CKD-EPI)AfAm >90 (>60 ml/min/1.73 sqM) Est GFR (CKD-EPI)NonAf >90 (>60 ml/min/1.73 sqM) Glucose 132 H (74-99) mg/dL Calcium 9.7 (8.4-10.2) mg/dL Magnesium 2.0 (1.6-2.3) mg/dL Total Bilirubin 1.0 (0.2-1.3) mg/dL AST 34 (14-36) U/L ALT 17 (4-34) U/L Alkaline Phosphatase 59 (38-126) U/L Troponin I (0.000-0.034) ng/mL NT-Pro-B Natriuret Pep 127 pg/mL Total Protein 7.2 (6.3-8.2) g/dL Albumin 4.2 (3.5-5.0) g/dL TSH (0.465-4.680) mIU/L 11/13/24 11/13/24 Range/Units 05:10 05:10 WBC (4.50-10.00) 10*3/uL RBC (4.10-5.20) 10*6/uL Hgb (12.0-15.0) g/dL Hct (37.2-46.3) % MCV (80.0-97.0) fL MCH (27.0-32.0) pg MCHC (32.0-37.0) g/dL Plt Count (140-440) 10*3/uL MPV (9.5-12.2) fL Immature Gran % (Auto) % Neutrophils % % Lymphocytes % % Monocytes % % Eosinophils % % Basophils % % Immature Gran # (0.00-0.04) 10*3/uL Neutrophils # (1.80-7.70) 10*3/uL Lymphocytes # (0.90-5.00) 10*3/uL Monocytes # (0.20-1.00) 10*3/uL Eosinophils # (0.04-0.35) 10*3/uL Basophils # (0.00-0.10) 10*3/uL PT (10.0-12.5) sec INR (<1.2) APTT (22.0-30.0) sec D-Dimer (<0.60) mg/L FEU Sodium (137-145) mmol/L Potassium (3.5-5.1) mmol/L Chloride (98-107) mmol/L Carbon Dioxide (22-30) mmol/L Anion Gap mmol/L BUN (7-17) mg/dL Creatinine (0.52-1.04) mg/dL Est GFR (CKD-EPI)AfAm (>60 ml/min/1.73 sqM) Est GFR (CKD-EPI)NonAf (>60 ml/min/1.73 sqM) Glucose (74-99) mg/dL Calcium (8.4-10.2) mg/dL Magnesium (1.6-2.3) mg/dL Total Bilirubin (0.2-1.3) mg/dL AST (14-36) U/L ALT (4-34) U/L Alkaline Phosphatase (38-126) U/L Troponin I <0.012 (0.000-0.034) ng/mL NT-Pro-B Natriuret Pep pg/mL Total Protein (6.3-8.2) g/dL Albumin (3.5-5.0) g/dL TSH 3.400 (0.465-4.680) mIU/L Disposition Is patient prescribed a controlled substance at d/c from ED?: No Decision Date: 11/13/24 Decision Time: 06:00 <Viviana Wallace - Last Filed: 11/13/24 07:54> <Ekaterina Gonzales - Last Filed: 11/16/24 10:14> Clinical Impression: Atrial fibrillation with rapid ventricular response Disposition: ADMITTED IP TO THIS HOSP Condition: Good
[2024-11-13] MEDS: SODIUM CHLORIDE 0.9% 1,000 ML IV STA (05:48)
[2024-11-13] MEDS: DILTIAZEM 125 MG in SODIUM CHLORIDE 0.9% 100 ML IV SCH (05:54)
[2024-11-13] MEDS: DILTIAZEM DRIP BOLUS FROM BAG 1 MG SOLN IV ONE (05:55)
[2024-11-13 05:56] LABS: Basophils # (A) 0.08 10*3/uL (0.00-0.10); Basophils % (A) 0.9 %; Eosinophils # (A) 0.15 10*3/uL (0.04-0.35); Eosinophils % (A) 1.8 %; HCT 45.7 % (37.2-46.3); Lymphocytes # (A) 3.69 10*3/uL (0.90-5.00); Lymphocytes % (A) 43.5 %; MCH 30.2 pg (27.0-32.0); MCHC 32.8 g/dL (32.0-37.0); Mean Platelet Volume 10.5 fL (9.5-12.2); Monocytes % (A) 7.1 %; Neutrophils # (A) 3.94 10*3/uL (1.80-7.70); Neutrophils % (A) 46.5 %; Platelet Count 293 10*3/uL (140-440); RBC 4.97 10*6/uL (4.10-5.20); WBC 8.48 10*3/uL (4.50-10.00)
[2024-11-13 06:03] LABS: ALT 17 U/L (4-34); African American GFR (CKD) >90 (>60 ml/min/1.73 sqM); Albumin 4.2 g/dL (3.5-5.0); Anion Gap 8 mmol/L; Blood Urea Nitrogen 13 mg/dL (7-17); Calcium 9.7 mg/dL (8.4-10.2); Carbon Dioxide 26 mmol/L (22-30); Chloride 104 mmol/L (98-107); Glucose 132 mg/dL (74-99); Non-African American GFR(CKD) >90 (>60 ml/min/1.73 sqM); Sodium 138 mmol/L (137-145); Total Protein 7.2 g/dL (6.3-8.2)
[2024-11-13 06:04] LABS: Potassium 4.5 mmol/L (3.5-5.1)
[2024-11-13 06:05] LABS: AST 34 U/L (14-36); Alkaline Phosphatase 59 U/L (38-126)
[2024-11-13 06:11] LABS: NT-Pro-B-Type Natriuretic Pept 127 pg/mL
[2024-11-13 06:13] LABS: INR 0.8 (<1.2); Partial Thromboplastin Time 23.3 sec (22.0-30.0); Prothrombin Time 9.6 sec (10.0-12.5)
[2024-11-13] MEDS ORDERED: HEPARIN SODIUM 1,000 UN/ML (10ML VL) IV PRN (06:22)
[2024-11-13] MEDS ORDERED: NALOXONE 0.4 MG/ML 1 ML VIAL IV PRN (06:38)
[2024-11-13] MEDS ORDERED: MAG HYDROX/AL HYDROX/SIMETH 30 ML CUP PO PRN (06:40)
[2024-11-13] MEDS ORDERED: ALPRAZolam 0.25 MG TAB PO PRN (06:40)
[2024-11-13] MEDS ORDERED: ONDANSETRON 4 MG/2 ML VIAL IVP PRN (06:40)
[2024-11-13] MEDS ORDERED: traMADol 50 MG TAB PO PRN (06:40)
[2024-11-13] MEDS ORDERED: CALCIUM CARBONATE 500 MG CHEWABLE PO PRN (06:40)
[2024-11-13] MEDS ORDERED: MORPHINE SULFATE 4 MG/ML SYRINGE IV PRN (06:40)
[2024-11-13] MEDS ORDERED: ACETAMINOPHEN TAB 325 MG TAB PO PRN (06:40)
--- NOTE | 2024-11-13 06:44 | XR ---
Chest, 2 view. CLINICAL INDICATION: Female, 49 years old with history of chest pain COMPARISON: None TECHNIQUE: PA and lateral views the chest are obtained. FINDINGS: The lungs are clear and there is no consolidative or interstitial opacity. There is no pleural effusion or pneumothorax. The heart, pulmonary vasculature, mediastinum and wilder appear normal. The osseous structures are intact. IMPRESSION: No significant abnormality seen. No acute cardiopulmonary disease. [facility], , 11/13/2024 6:42 AM
[2024-11-13] MEDS: HEPARIN SOD,PORK IN 0.45% NACL 25,000 UNIT in 0.45% NACL 1 250ML.BAG IV SCH (06:47)
[2024-11-13] MEDS: HEPARIN SODIUM 1,000 UN/ML (10ML VL) IV ONE (06:52)
[2024-11-13] MEDS: DILTIAZEM ORAL 30 MG TAB PO STA (07:06)
[2024-11-13] MEDS: SODIUM CHLORIDE 0.9% 1,000 ML IV SCH (07:48)
[2024-11-13 08:20] VITALS: TEMP 97.8
[2024-11-13] MEDS: FAMOTIDINE 20 MG TAB PO SCH (10:01)
[2024-11-13 12:13] VITALS: BP 130/78; PULSE 63; RESP 18
--- NOTE | 2024-11-13 12:21 | P.CRDCN ---
History of Present Illness Consult date: 11/13/24 Consult reason: atrial fibrillation Chief complaint: palpitations History of present illness: History of present illness: Patient is a pleasant 49 year old femlae with no significant past medical history other than c-spine surgery who presented to ER with palpitations. 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 She denies family history heart disease, aunt and grandmother with history of stroke. She does not smoke, drink alcohol, or use drugs. She states she [facility]. Last night she was getting ready for bed and felt heart palpitations. Heart rate was "all over the place", she felt lightheaded and short of breath, lysed weakness. No chest pain or pressure. Trop normal, BNP 127, TSH normal. EKG showed a-fib with RVR 132. He was started on heparin drip and Cardizem. She did convert to sinus rhythm. She is feeling significantly better back to her baseline and normal rhythm. Denies history of MS, CVA, DM, DVT, clots, HTN. REVIEW OF SYSTEMS: No fever or chills. No cough or expectoration. No diaphoresis. Patient denies headache, dizziness, blurred vision, double vision. Patient denies any stomach discomfort. No nausea, vomiting. No hematochezia. No hematemesis. Denies any black stools or blood in his stools. Denies dysuria or hematuria. No muscle weakness or numbness. No chest pain or pressure. PHYSICAL EXAMINATION: This is a 49-year-old female in no apparent distress at the time of my examination. HEENT: Head is atraumatic, normocephalic. Pupils are equal, round. Sclerae anicteric. Conjunctivae are clear. Mucous membranes of the mouth are moist. Neck is supple. There is no jugular venous distention. No carotid bruit is heard. CHEST EXAMINATION: Lungs are clear to auscultation. No chest wall tenderness is noted on palpation or with deep breathing. HEART EXAMINATION: Heart regular rate and rhythm. S1, S2 heard. No murmurs, gallops or rub. ABDOMEN: Soft, nontender. Bowel sounds are heard. EXTREMITIES: 2+ peripheral pulses with no evidence of peripheral edema and no calf tenderness noted. NEUROLOGIC EXAMINATION: Patient is awake, alert and oriented x3. IMPRESSION AND PLAN: New onset paroxsymal A-fib lightheadedness palpitations PLAN: She is back in normal sinus rhythm and feeling better in NSR. [id number] score is 1 for female. Okay to DC heparin and Cardizem. Discussed a-fib pradeep lerner with rhythm control versus rate control. Monitor blood pressure at home and keep log. Check outpatient ECHO. Consider sleep apnea eval. OK to discharge home from cardiac standpoint. Follow up in office in 1-2 weeks. I am dictating on behalf of Dr. Damion Quezada's history/physical and as sessment/plan. Past Medical History Past Medical History: No Reported History Additional Past Medical History / Comment(s): right arm numbness and pain x 4months History of Any Multi-Drug Resistant Organisms: None Reported Past Surgical History: No Surgical Hx Reported Additional Past Surgical History / Comment(s): herniated disc 2017, neck surgery Past Anesthesia/Blood Transfusion Reactions: No Reported Reaction Past Psychological History: No Psychological Hx Reported Smoking Status: Never smoker Past Alcohol Use History: None Reported Past Drug Use History: None Reported Medications and Allergies Home Medications Medication Instructions Recorded Confirmed Type Vitamin D3/Vitamin K2 Drops 1 dose PO DAILY 11/13/24 11/13/24 History Allergies Allergy/AdvReac Type Severity Reaction Status Date / Time No Known Allergies Allergy Verified 11/13/24 09:19 Physical Exam Vitals: Vital Signs Temp Pulse Pulse Resp BP BP Pulse Ox 11/13/24 08:12 97.8 F 70 16 130/87 98 11/13/24 07:57 97.9 F 83 16 138/99 99 11/13/24 07:27 97.8 F 80 18 151/96 98 11/13/24 06:53 105 H 18 124/90 100 11/13/24 05:59 107 H 17 127/105 99 11/13/24 04:48 98.0 F 83 18 141/97 99 Intake and Output 11/12/24 11/13/24 11/13/24 22:59 06:59 14:59 Other: Voiding Method Toilet Weight 124.738 kg 124.738 kg Results 11/13/24 05:10 11/13/24 05:10 Cardiac Enzymes 11/13/24 11/13/24 Range/Units 05:10 05:10 AST 34 (14-36) U/L Troponin I <0.012 (0.000-0.034) ng/mL Coagulation 11/13/24 Range/Units 05:10 PT 9.6 L (10.0-12.5) sec APTT 23.3 (22.0-30.0) sec CBC 11/13/24 Range/Units 05:10 WBC 8.48 (4.50-10.00) 10*3/uL RBC 4.97 (4.10-5.20) 10*6/uL Hgb 15.0 (12.0-15.0) g/dL Hct 45.7 (37.2-46.3) % Plt Count 293 (140-440) 10*3/uL Comprehensive Metabolic Panel 11/13/24 Range/Units 05:10 Sodium 138 (137-145) mmol/L Potassium 4.5 (3.5-5.1) mmol/L Chloride 104 (98-107) mmol/L Carbon Dioxide 26 (22-30) mmol/L BUN 13 (7-17) mg/dL Creatinine 0.77 (0.52-1.04) mg/dL Glucose 132 H (74-99) mg/dL Calcium 9.7 (8.4-10.2) mg/dL AST 34 (14-36) U/L ALT 17 (4-34) U/L Alkaline Phosphatase 59 (38-126) U/L Total Protein 7.2 (6.3-8.2) g/dL Albumin 4.2 (3.5-5.0) g/dL Current Medications Generic Name Dose Route Start Last Admin Trade Name Freq PRN Reason Stop Dose Admin Acetaminophen 650 mg 11/13/24 06:40 Acetaminophen Tab 325 Mg Tab PO Q6HR PRN Mild Pain or Fever > 100.5 Al Hydroxide/Mg Hydroxide 15 ml 11/13/24 06:40 Mag Hydrox/Al Hydrox/Simeth 30 Ml Cup PO Q6HR PRN Indigestion Alprazolam 0.25 mg 11/13/24 06:40 Alprazolam 0.25 Mg Tab PO Q6HR PRN Anxiety Calcium Carbonate/Glycine 1,000 mg 11/13/24 06:40 Calcium Carbonate 500 Mg Chewable PO Q4HR PRN Dyspepsia Famotidine 20 mg 11/13/24 09:00 Famotidine 20 Mg Tab PO BID [facility] Heparin Sodium (Porcine) 0 unit 11/13/24 06:22 Heparin Sodium 1,000 Un/Ml (10ml Vl) IV PER PROTOCOL PRN Low PTT Protocol Diltiazem HCl 125 mg/ Sodium 125 mls @ 5 mls/hr 11/13/24 05:30 11/13/24 05:54 Chloride IV 5 mg/hr .Q24H KIRK 5 mls/hr Administration Protocol 5 MG/HR Heparin Sodium/Sodium Chloride 250 mls @ 10 mls/hr 11/13/24 06:30 11/13/24 06:47 25,000 unit/ Sodium Chloride IV 8.017 units/kg/hr .Q24H KIRK 10 mls/hr Administration Protocol 8.017 UNITS/KG/HR Sodium Chloride 1,000 mls @ 75 mls/hr 11/13/24 06:45 11/13/24 07:48 Saline 0.9% IV 75 mls/hr .[id number] KIRK Administration Morphine Sulfate 4 mg 11/13/24 06:40 Morphine Sulfate 4 Mg/Ml Syringe IV Q4HR PRN Severe Pain (Scale 7 to 10) Naloxone HCl 0.2 mg 11/13/24 06:38 Naloxone 0.4 Mg/Ml 1 Ml Vial IV Q2M PRN Opioid Reversal Ondansetron HCl 4 mg 11/13/24 06:40 Ondansetron 4 Mg/2 Ml Vial IVP Q8HR PRN Nausea And Vomiting Tramadol HCl 50 mg 11/13/24 06:40 Tramadol 50 Mg Tab PO Q6H PRN Moderate Pain (Scale 4 to 6) Intake and Output 11/12/24 11/13/24 11/13/24 22:59 06:59 14:59 Other: Voiding Method Toilet Weight 124.738 kg 124.738 kg Patient Weight 11/14/24 06:59 Weight 124.738 kg 11/13/24 05:10 11/13/24 05:10
--- NOTE | 2024-11-13 13:31 | P.HPIM ---
History of Present Illness H&P Date: 11/13/24 History of present illness; patient is a 49-year-old lady with no significant past medical history who came to the ER for palpitations. Patient stated she was all right this morning when she was woken up from her sleep with palpitations. Patient at the time was also having chest pressure and shortness of breath. Chest pressure central, nonradiating, no aggravating or relieving factor associate with this chest pressure. Patient stated that she was feeling weak and dizzy at that time. Patient continued to feel palpitations and decided to come to the ER Initial lab work done in the ER showed WBC 8.48, hemoglobin 15, platelet count 293 D-dimer 0.32, sodium 130, potassium 4.5, BUN 13, creatinine 0.77, glucose 132, troponin 0.012, proBNP 127, TSH 3.4 EKG done in the ER showed heart rate of 132, irregular in rhythm and rate, no ST segment elevation or depression seen, no T-wave inversions seen. Chest x-ray done in the ER showed no acute cardiopulmonary process Patient admitted to internal medicine service REVIEW OF SYSTEMS: CONSTITUTIONAL: No fever, no malaise, no fatigue. HEENT: No recent visual problems or hearing problems. Denied any sore throat. CARDIOVASCULAR: As mentioned above PULMONARY: As mentioned above GASTROINTESTINAL: No diarrhea, no nausea, no vomiting, no abdominal pain. NEUROLOGICAL: No headaches, no weakness, no numbness. HEMATOLOGICAL: Denies any bleeding or petechiae. GENITOURINARY: Denies any burning micturition, frequency, or urgency. MUSCULOSKELETAL/RHEUMATOLOGICAL: Denies any joint pain, swelling, or any muscle pain. ENDOCRINE: Denies any polyuria or polydipsia. The rest of the 14-point review of systems is negative. PHYSICAL EXAMINATION: GENERAL: The patient is alert and oriented x3, not in any acute distress. Well developed, well nourished. HEENT: Pupils are round and equally reacting to light. EOMI. No scleral icterus. No conjunctival pallor. Normocephalic, atraumatic. No pharyngeal erythema. No thyromegaly. CARDIOVASCULAR: S1 and S2 present. No murmurs, rubs, or gallops. irregular rate and rhythm PULMONARY: Chest is clear to auscultation, no wheezing or crackles. ABDOMEN: Soft, nontender, nondistended, normoactive bowel sounds. No palpable organomegaly. MUSCULOSKELETAL: No joint swelling or deformity. EXTREMITIES: No cyanosis, clubbing, or pedal edema. NEUROLOGICAL: Gross neurological examination did not reveal any focal deficits. SKIN: No rashes. Assessment and plan Paroxysmal A-fib with RVR History of C-spine surgery Monitor vital signs Monitor CBC Monitor CMP Continue telemetry monitoring Trend troponin Started on Cardizem drip Started on heparin drip 2D echo ordered Cardiology consult Labs and medication were reviewed.. Continue same treatment. Continue with symptomatic treatment. Resume home medication. Monitor labs and vitals. DVT and GI prophylaxis. Further recommendations as per clinical course of the patient Dictation was produced using [employer] dictation software. please excuse any grammatical, word or spelling errors. Past Medical History Past Medical History: No Reported History Additional Past Medical History / Comment(s): right arm numbness and pain x 4months History of Any Multi-Drug Resistant Organisms: None Reported Past Surgical History: No Surgical Hx Reported Additional Past Surgical History / Comment(s): herniated disc 2017, neck surgery Past Anesthesia/Blood Transfusion Reactions: No Reported Reaction Past Psychological History: No Psychological Hx Reported Smoking Status: Never smoker Past Alcohol Use History: None Reported Past Drug Use History: None Reported Medications and Allergies Home Medications Medication Instructions Recorded Confirmed Type Vitamin D3/Vitamin K2 Drops 1 dose PO DAILY 11/13/24 11/13/24 History Allergies Allergy/AdvReac Type Severity Reaction Status Date / Time No Known Allergies Allergy Verified 11/13/24 09:19 Physical Exam Vitals: Vital Signs Temp Pulse Pulse Resp BP BP Pulse Ox 11/13/24 12:12 63 18 130/78 100 11/13/24 08:12 97.8 F 70 16 130/87 98 11/13/24 07:57 97.9 F 83 16 138/99 99 11/13/24 07:27 97.8 F 80 18 151/96 98 11/13/24 06:53 105 H 18 124/90 100 11/13/24 05:59 107 H 17 127/105 99 11/13/24 04:48 98.0 F 83 18 141/97 99 Intake and Output 11/12/24 11/13/24 11/13/24 22:59 06:59 14:59 Other: Voiding Method Toilet Weight 124.738 kg 124.738 kg Results CBC & Chem 7: 11/13/24 05:10 11/13/24 05:10 Labs: Abnormal Lab Results - Last 24 Hours (Table) 11/13/24 11/13/24 Range/Units 05:10 05:10 PT 9.6 L (10.0-12.5) sec Glucose 132 H (74-99) mg/dL Thrombosis Risk Factor Assmnt - Choose All That Apply Each Factor Represents 1 point: Age 41-60 years, Obesity (BMI >25) Thrombosis Risk Factor Assessment Total Risk Factor Score: 2 Thrombosis Risk Factor Assessment Level: Low Risk
--- NOTE | 2024-11-21 10:40 | P.DS ---
Providers Date of admission: 11/13/24 06:41 Expected date of discharge: 11/13/24 Attending physician: Mauricio Wheatley MD Consults: 11/13/24 06:38 Consult Physician Urgent Consulting Provider: [facility] Consult Reason/Comments: new onset a fib Do you want consulting provider notified?: Yes, Notify in am Primary care physician: Renuka Harris [facility] Course: Discharge diagnoses; Paroxysmal A-fib with RVR History of C-spine surgery Hospital course; patient is a 49-year-old lady with no significant past medical history who came to the ER for palpitations. Patient stated she was all right this morning when she was woken up from her sleep with palpitations. Patient at the time was also having chest pressure and shortness of breath. Chest pressure central, nonradiating, no aggravating or relieving factor associate with this chest pressure. Patient stated that she was feeling weak and dizzy at that time. Patient continued to feel palpitations and decided to come to the ER Initial lab work done in the ER showed WBC 8.48, hemoglobin 15, platelet count 293 D-dimer 0.32, sodium 130, potassium 4.5, BUN 13, creatinine 0.77, glucose 132, troponin 0.012, proBNP 127, TSH 3.4 EKG done in the ER showed heart rate of 132, irregular in rhythm and rate, no ST segment elevation or depression seen, no T-wave inversions seen. Chest x-ray done in the ER showed no acute cardiopulmonary process Patient admitted to internal medicine service. Patient was eval by cardiology, patient converted to normal sinus rhythm on her own. At this time cardiology recommend discontinuing all medications, recommended outpatient follow-up at which time they will consider doing 2D echo, they did not recommend any anticoagulation or rate controlling medication at this time PHYSICAL EXAMINATION: GENERAL: The patient is alert and oriented x3, not in any acute distress. Well developed, well nourished. HEENT: Pupils are round and equally reacting to light. EOMI. No scleral icterus. No conjunctival pallor. Normocephalic, atraumatic. No pharyngeal erythema. No thyromegaly. CARDIOVASCULAR: S1 and S2 present. No murmurs, rubs, or gallops. PULMONARY: Chest is clear to auscultation, no wheezing or crackles. ABDOMEN: Soft, nontender, nondistended, normoactive bowel sounds. No palpable organomegaly. MUSCULOSKELETAL: No joint swelling or deformity. EXTREMITIES: No cyanosis, clubbing, or pedal edema. NEUROLOGICAL: Gross neurological examination did not reveal any focal deficits. SKIN: No rashes. Dictation was produced using [employer] dictation software. please excuse any grammatical, word or spelling errors. Patient Condition at Discharge: Good Plan - Discharge Summary Discharge Rx Participant: No New Discharge Prescriptions: Continue Vitamin D3/Vitamin K2 Drops 1 dose PO DAILY Discharge Medication List Vitamin D3/Vitamin K2 Drops 1 dose PO DAILY 11/13/24 [History] Follow up Appointment(s)/Referral(s): Damion Quezada DO [STAFF PHYSICIAN] - 1 Week (Office is closed. Please call to schedule follow up tomorrow) Renuka Harris DO [Primary Care Provider] - 1-2 days (Office is closed. Please call to schedule follow up tomorrow) Patient Instructions/Handouts: A-fib (Atrial Fibrillation) (ED) Discharge Disposition: HOME SELF-CARE
== END 2024-11-13 14:01 | disposition home or self-care (01) ==
LOC: EC 04:38 → INTOOBSV 06:41 → 3SCARD 06:41
PROVIDERS: ADMIT Internal Medicine; ATTEND Internal Medicine
DX: I48.0 Paroxysmal atrial fibrillation (principal)
CPT/HCPCS: 96366 ×2; 96368; 96365; 99291; 36415; 93005; 85379; 83880; 80053; 83735; 84443; 84484; 85025; 85610; 85730; 71046; G0378; J1644 ×2; 96374; 96375

== ENCOUNTER 2025-02-19 15:04 | Emergency (ER) | payer BC ==
[2025-02-19] MEDS: DIPH,PERTUS(ACELL)TETVAC-LF 0.5 ML VIAL IM ONE (16:41)
[2025-02-19] MEDS: RABIES VACCINE (PCEC) 2.5 UNIT KIT IM ONE (16:42)
[2025-02-19] MEDS: DOXYCYCLINE 100 MG TABLET PO ONE (16:43)
--- NOTE | 2025-02-19 16:44 | XR ---
EXAMINATION TYPE: XR hand limited RT DATE OF EXAM: 02/19/2025 4:25 PM COMPARISON: None. CLINICAL INDICATION: Female, 49 years old with history of cat bite. eval for retained foreign body; P HH, pain TECHNIQUE: XR hand limited RT Frontal, lateral and oblique views were obtained. FINDINGS: Normal alignment of the visualized joints. No acute osseous pathology is identified. No e vidence of soft tissue swelling. No significant degeneration IMPRESSION: 1. No acute osseous pathology. 2. Multifocal osteoarthrosis throughout the joints of the hand. [facility], , 02/19/2025 4:41 PM
--- NOTE | 2025-02-19 17:08 | ED ---
General Adult HPI - General Chief complaint: Animal Bite Stated complaint: Cat bite Time Seen by Provider: 02/19/25 16:05 Source: patient, RN notes reviewed, old records reviewed Mode of arrival: ambulatory Limitations: no limitations - History of Present Illness Initial comments: 49-year-old female presents emergency department after cat bite. Cat bit her right thenar eminence on the posterior and anterior aspect. This was done yesterday. Noticed it was red and swollen today and came for evaluation. It was a stray cat. Unknown vaccination status. Has not seen the cat since. She has seen the cat previously and was trying to help take care of it as the cat is . She is not up-to-date on tetanus. Unknown rabies vaccination status of the cat. Mild reaction to penicillin antibiotics in the past. She is still has full range of motion of the right hand and thumb as well as full sensory evaluation. Presents for treatment. - Related Data Home Medications Medication Instructions Recorded Confirmed Vitamin D3/Vitamin K2 Drops 1 dose PO DAILY 11/13/24 11/13/24 Previous Rx's Medication Instructions Recorded Doxycycline [Vibramycin] 100 mg PO BID 14 Days #28 capsule 02/19/25 Allergies Allergy/AdvReac Type Severity Reaction Status Date / Time No Known Allergies Allergy Verified 02/19/25 15:24 Review of Systems ROS Statement: Those systems with pertinent positive or pertinent negative responses have been documented in the HPI. Review of Systems: CONST: Denies fever EYES: Denies blurry vision ENT: Denies nasal congestion C/V: Denies Chest pain RESP: Denies shortness of breath GI: Denies abdominal pain : Denies dysuria SKIN: Endorses cat bite to right hand MSK: Denies joint pain. NEURO: Denies headache ROS Other: All systems not noted in ROS Statement are negative. Past Medical History Past Medical History: Hypertension Additional Past Medical History / Comment(s): right arm numbness and pain x 4months History of Any Multi-Drug Resistant Organisms: None Reported Past Surgical History: No Surgical Hx Reported Additional Past Surgical History / Comment(s): herniated disc 2017, neck surgery Past Anesthesia/Blood Transfusion Reactions: No Reported Reaction Past Psychological History: No Psychological Hx Reported Smoking Status: Never smoker Past Alcohol Use History: None Reported Past Drug Use History: None Reported General Exam - General Exam Comments Initial Comments: General: Appears in no acute distress. HEAD: Normal with no signs of head trauma. EYES: EOMI. ENT: Hearing grossly intact. RESPIRATORY: No respiratory distress. C/V: Regular rate and rhythm. ABD: Abdomen is nondistended. EXT: No obvious deformity. Normal range of motion of right hand and thumb. No obvious deformities. No restrictions. Neurovasc intact throughout. SKIN: 2 small puncture wounds to the right hand, 1 on the posterior aspect of the thenar eminence and one on the anterior aspect. Some mild edema as well as mild erythema present. No discharge. NEURO: Alert and oriented. Limitations: no limitations Course Vital Signs 02/19/25 02/19/25 15:22 17:15 Temperature 98.2 F 98 F Pulse Rate 67 70 Respiratory 20 16 Rate Blood Pressure 153/87 155/96 O2 Sat by Pulse 99 99 Oximetry Medical Decision Making - Medical Decision Making Was pt. sent in by a medical professional or institution (, PA, [employer], urgent care, hospital, or fpc...) When possible be specific @ -No Did you speak to anyone other than the patient for history (EMS, parent, family, police, friend...)? What history was obtained from this source @ -No Did you review nursing and triage notes (agree or disagree)? Why? @ -I reviewed and agree with nursing and triage notes Were old charts reviewed (outside hosp., previous admission, EMS record, old EKG, old radiological studies, urgent care reports/EKG's, fpc records)? Report findings @ -No old charts were reviewed Differential Diagnosis (chest pain, altered mental status, abdominal pain women, abdominal pain men, vaginal bleeding, weakness, fever, dyspnea, syncope, headache, dizziness, GI bleed, back pain, seizure, CVA, palpatations, mental health, musculoskeletal)? @ -Cat bite, rabies exposure, cellulitis. This list is not all-inclusive. EKG interpreted by me (3pts min.). @ -None done X-rays interpreted by me (1pt min.). @ -X-ray showed no obvious acute finding and no retained foreign body such as tooth. CT interpreted by me (1pt min.). @ -None done U/S interpreted by me (1pt. min.). @ -None done What testing was considered but not performed or refused? (CT, X-rays, U/S, labs)? Why? @ -None What meds were considered but not given or refused? Why? @ -None Did you discuss the management of the patient with other professionals (professionals i.e. , [facility], [employer], lab, RT, psych nurse, social science analyst, detonator maker, teacher, agricultural extension officer, field case manager)? Give summary @ -No Was smoking cessation discussed for >3mins.? @ -No Was critical care preformed (if so, how long)? @ -No Were there social determinants of health that impacted care today? How? (Homelessness, low income, unemployed, alcoholism, drug addiction, transportation, low edu. Level, literacy, decrease access to med. care, penitentiary, rehab)? @ -No Was there de-escalation of care discussed even if they declined (Discuss DNR or withdrawal of care, Hospice)? DNR status @ -No What co-morbidities impacted this encounter? (DM, HTN, Smoking, COPD, CAD, Cancer, CVA, ARF, Chemo, Hep., AIDS, mental health diagnosis, sleep apnea, morbid obesity)? @ -None Was patient admitted / discharged? Hospital course, mention meds given and route, prescriptions, significant lab abnormalities, going to OR and other pertinent info. @ -Presents for cat bite to the right thenar eminence. Will obtain x-ray and patient will be given tetanus update, started on antibiotics, doxycycline due to reaction to penicillins in the past, as well as started on rabies prophylaxis as this was a stray cat that cannot be observed and unknown vaccination status for the. Patient was in agreement this plan. Vitals are within acceptable limits. No concern for joint involvement of the bite. Strict return precautions discussed after x-ray shows no obvious finding. Recommended keeping it clean, complete course of antibiotics, and complete course of rabies vaccination which was started here in the department. She was in agreement this plan. I will provide the patient with a prescription for doxycycline. I instructed the patient to follow up with their PCP in the next 1-3 days.. I explained that the patient should return to the emergency department if they experience any worsening symptoms. Strict return precautions were discussed with the patient. The patient expressed understanding of these instructions. I answered all questions that the patient had. The patient was discharged home in good condition with their prescriptions and follow up information. Undiagnosed new problem with uncertain prognosis? @ -No Drug Therapy requiring intensive monitoring for toxicity (Heparin, Nitro, Insulin, Cardizem)? @ -No Were any procedures done? @ -No Diagnosis/symptom? @ -Cat bite, rabies prophylaxis Acute, or Chronic, or Acute on Chronic? @ -Acute Uncomplicated (without systemic symptoms) or Complicated (systemic symptoms)? @ -Uncomplicated Side effects of treatment? @ -No Exacerbation, Progression, or Severe Exacerbation? @ -No Poses a threat to life or bodily function? How? (Chest pain, [place], [place], pneumonia, PE, COPD, DKA, ARF, appy, cholecystitis, CVA, Diverticulitis, Homicidal, Suicidal, threat to staff... and all critical care pts) @ -Unlikely at this time Disposition Clinical Impression: Cat bite, Rabies, need for prophylactic vaccination against Disposition: HOME SELF-CARE Condition: Good Instructions (If sedation given, give patient instructions): Rabies Vaccine (By injection), Animal Bite (ED), Rabies (ED) Prescriptions: Doxycycline [Vibramycin] 100 mg PO BID 14 Days #28 capsule Is patient prescribed a controlled substance at d/c from ED?: No Referrals: Renuka Harris DO [Primary Care Provider] - 1-2 days Time of Disposition: 17:05
[2025-02-19 17:17] VITALS: BP 155/96; PULSE 70; RESP 16; TEMP 98
== END 2025-02-19 17:16 | disposition home or self-care (01) ==
LOC: EC 15:04
DX: S61.051A Open bite of right thumb without damage to nail, initial encounter (principal); Z23 Encounter for immunization; Z20.3 Contact with and (suspected) exposure to rabies; W55.01XA Bitten by cat, initial encounter
CPT/HCPCS: 90471; 90675; 90715; 99283